=== PATIENT | female | born 1980 | race Caucasian/White ===

== ENCOUNTER 2024-07-09 10:25 | Inpatient (IN) | payer OTHER ==
[~2024-07-09] VITALS: Ht 157.5 cm; Wt 49.0 kg
[2024-07-09] MEDS ORDERED: MORPHINE SULFATE INJ 2 MG/ML DISP.SYRIN ONE (10:58)
[2024-07-09] MEDS: MORPHINE SULFATE INJ 2 MG/ML DISP.SYRIN IV ONE (11:00)
[2024-07-09 11:19] LABS: BASOPHILS # (AUTO) 0.2 K/uL (0.0-0.2); BASOPHILS % (AUTO) 1.9 % (0.0-2.0); EOSINOPHILS # (AUTO) 1.5 K/uL (0.0-0.7); EOSINOPHILS % (AUTO) 13.5 % (0.0-6.0); HEMATOCRIT 29 % (33-45); HEMOGLOBIN 9.7 g/dL (11.5-14.8); LYMPHOCYTES # (AUTO) 1.6 K/uL (0.8-4.8); LYMPHOCYTES % (AUTO) 14.8 % (20.0-44.0); MEAN CORPUSCULAR HEMOGLOBIN 30 PG (26.0-33.0); MEAN CORPUSCULAR HGB CONC 33 g/dl (31.0-36.0); MEAN CORPUSCULAR VOLUME 92 fL (82-100); MONOCYTES # (AUTO) 0.5 K/uL (0.1-1.30); MONOCYTES % (AUTO) 4.9 % (2.0-12.0); NEUTROPHILS # (AUTO) 7.2 K/uL (1.8-8.9); NEUTROPHILS % (AUTO) 64.9 % (43.0-81.0); PLATELET COUNT (AUTO) 301 K/uL (150-450); RED CELL DISTRIBUTION WIDTH 18.1 % (11.5-15.0)
[2024-07-09 11:29] LABS: CALCIUM, SERUM 9.1 mg/dL (8.5-10.1); CARBON DIOXIDE 20 mmol/L (21-32); CHLORIDE 94 mmol/L (98-107); CREATININE 6.7 mg/dL (0.6-1.3); GLUCOSE 272 mg/dL (74-106); SODIUM SERUM 129 mmol/L (136-145)
[2024-07-09 11:39] LABS: POTASSIUM 6.7 mmol/L (3.5-5.1); UREA NITROGEN, BLOOD 94 mg/dL (7-18)
[2024-07-09 11:52] LABS: LACTIC ACID 0.9 mmol/L (0.4-2.0)
[2024-07-09] MEDS ORDERED: SODIUM ZIRCONIUM CYCLOSILICATE 10 GM POWD.PACK ONE (12:17)
[2024-07-09] MEDS: SODIUM ZIRCONIUM CYCLOSILICATE 10 GM POWD.PACK PO ONE (12:21)
[2024-07-09] MEDS ORDERED: hydrALAZINE HCL IV 20 MG VIAL ONE (12:22)
[2024-07-09] MEDS: hydrALAZINE HCL IV 20 MG VIAL IV PRN (12:25)
[2024-07-09] MEDS ORDERED: MAGNESIUM HYDROXIDE 30 ML UDC PO PRN ×2 (12:30→14:30)
[2024-07-09] MEDS ORDERED: Z GUARD REMEDY 4 OZ OINT TP PRN (12:30)
[2024-07-09] MEDS ORDERED: MAG HYDROX/AL HYDROX/SIMETH 30 ML UDC PO PRN (12:30)
[2024-07-09] MEDS ORDERED: ASPI-1169 PO (13:58)
[2024-07-09] MEDS ORDERED: NITR0.4T48 SL (13:58)
[2024-07-09] MEDS ORDERED: ACET-73 PO (13:58)
[2024-07-09] MEDS ORDERED: BISA10SU11 RC (13:58)
[2024-07-09] MEDS ORDERED: NA P133E RC (13:58)
[2024-07-09] MEDS ORDERED: MAGN400O6 PO (13:58)
[2024-07-09] MEDS ORDERED: CARV12.52 PO (13:58)
[2024-07-09] MEDS ORDERED: HYDR-4076 PO (13:58)
[2024-07-09] MEDS ORDERED: ATOR80TA PO (13:58)
[2024-07-09] MEDS ORDERED: BISACODYL SUPP (10 MG) 10 MG/SUPP.RECT SUPP.RECT RC PRN (14:30)
[2024-07-09] MEDS ORDERED: DEXTROSE 50%-WATER 50 ML DISP.SYRIN IV PRN (14:30)
[2024-07-09] MEDS: NITROGLYCERIN PACKET 1 GM PACKET TOP SCH (14:44)
[2024-07-09] MEDS: ONDANSETRON HCL/PF 4 MG/2 ML VIAL IVP PRN (15:15)
[2024-07-09] MEDS: MORPHINE SULFATE INJ 2 MG/ML DISP.SYRIN IV PRN (15:54)
[2024-07-09 16:19] LABS: THYROID STIMULATING HORMONE 1.53 uIU/mL (0.358-3.74)
[2024-07-09 16:30] VITALS: BP 154/77; O2SAT 96
[2024-07-09] MEDS: CARVEDILOL 12.5 MG TABLET PO SCH (17:00)
[2024-07-09] MEDS: hydrALAZINE HCL 25 MG TABLET PO SCH (17:00)
[2024-07-09] MEDS: BLOOD SUGAR DIAGNOSTIC 1 EACH STRIP IN SCH (17:30)
[2024-07-09] MEDS: ASPIRIN 81 MG TAB.CHEW PO SCH (19:35)
[2024-07-09 20:00] VITALS: BP 192/100; TEMP 97.7; O2SAT 98
[2024-07-09 20:30] VITALS: BP 180/100; TEMP 97.7; O2SAT 98
[2024-07-09] MEDS: ACETAMINOPHEN 325 MG TABLET PO PRN (20:31)
[2024-07-09 21:00] VITALS: BP 188/88; TEMP 97.7; O2SAT 98
[2024-07-09] MEDS: ATORVASTATIN 40 MG TABLET PO SCH (22:19)
[2024-07-09] MEDS: INSULIN REGULAR, HUMAN 100 UNIT/ML 3 ML VIAL SQ PRN (22:30)
[2024-07-10] VITALS: BP 169/89; TEMP 98.2; O2SAT 98
[2024-07-10 04:00] VITALS: BP 189/94; TEMP 98.2; O2SAT 98
[2024-07-10 06:43] VITALS: BP 192/100; TEMP 97.7; O2SAT 98
[2024-07-10 06:45] LABS: CALCIUM, SERUM 9.6 mg/dL (8.5-10.1); CREATININE 5.4 mg/dL (0.6-1.3); MAGNESIUM 2.4 mg/dL (1.8-2.4); PHOSPHORUS 6.5 mg/dL (2.5-4.9)
[2024-07-10 06:46] LABS: BASOPHILS # (AUTO) 0.2 K/uL (0.0-0.2); BASOPHILS % (AUTO) 2.3 % (0.0-2.0); EOSINOPHILS # (AUTO) 1.4 K/uL (0.0-0.7); EOSINOPHILS % (AUTO) 15.7 % (0.0-6.0); HEMATOCRIT 30 % (33-45); HEMOGLOBIN 9.8 g/dL (11.5-14.8); LYMPHOCYTES # (AUTO) 1.6 K/uL (0.8-4.8); LYMPHOCYTES % (AUTO) 18.2 % (20.0-44.0); MEAN CORPUSCULAR HEMOGLOBIN 30 PG (26.0-33.0); MEAN CORPUSCULAR HGB CONC 32 g/dl (31.0-36.0); MEAN CORPUSCULAR VOLUME 91 fL (82-100); MONOCYTES # (AUTO) 0.6 K/uL (0.1-1.30); NEUTROPHILS % (AUTO) 56.8 % (43.0-81.0); PLATELET COUNT (AUTO) 311 K/uL (150-450); RED BLOOD CELL COUNT(AUTO) 3.32 MIL/uL (4.0-5.2); RED CELL DISTRIBUTION WIDTH 18.1 % (11.5-15.0); WHITE BLOOD COUNT (AUTO) 8.9 K/uL (4.3-11.0)
[2024-07-10 09:20] VITALS: BP 150/95; TEMP 98.5; O2SAT 98
[2024-07-10] MEDS: ASPIRIN 81 MG TAB.CHEW PO SCH (09:40)
[2024-07-10] MEDS: CARVEDILOL 12.5 MG TABLET PO SCH (16:13)
[2024-07-10 16:29] VITALS: BP 133/91; TEMP 98.1; O2SAT 97
[2024-07-10 20:00] VITALS: BP 151/96; TEMP 98.1; O2SAT 99
[2024-07-11] VITALS: BP 201/87; TEMP 98.4; O2SAT 99
[2024-07-11 04:55] VITALS: BP 189/87; TEMP 99; O2SAT 98
[2024-07-11 06:44] LABS: CALCIUM, SERUM 9.8 mg/dL (8.5-10.1); CREATININE 4.7 mg/dL (0.6-1.3); MAGNESIUM 2.4 mg/dL (1.8-2.4); POTASSIUM 4.2 mmol/L (3.5-5.1)
[2024-07-11 06:47] LABS: BASOPHILS # (AUTO) 0.2 K/uL (0.0-0.2); BASOPHILS % (AUTO) 2.2 % (0.0-2.0); EOSINOPHILS # (AUTO) 0.7 K/uL (0.0-0.7); HEMATOCRIT 30 % (33-45); HEMOGLOBIN 9.9 g/dL (11.5-14.8); LYMPHOCYTES # (AUTO) 1.3 K/uL (0.8-4.8); LYMPHOCYTES % (AUTO) 18.3 % (20.0-44.0); MEAN CORPUSCULAR HEMOGLOBIN 30 PG (26.0-33.0); MEAN CORPUSCULAR HGB CONC 33 g/dl (31.0-36.0); MEAN CORPUSCULAR VOLUME 91 fL (82-100); MONOCYTES # (AUTO) 0.6 K/uL (0.1-1.30); MONOCYTES % (AUTO) 7.9 % (2.0-12.0); NEUTROPHILS # (AUTO) 4.5 K/uL (1.8-8.9); NEUTROPHILS % (AUTO) 62.6 % (43.0-81.0); PLATELET COUNT (AUTO) 314 K/uL (150-450); RED CELL DISTRIBUTION WIDTH 18.5 % (11.5-15.0); WHITE BLOOD COUNT (AUTO) 7.2 K/uL (4.3-11.0)
[2024-07-11 08:00] VITALS: BP 165/90; TEMP 98.1; O2SAT 98
[2024-07-11] MEDS: AMLODIPINE BESYLATE 10 MG TABLET PO SCH (09:01)
[2024-07-11 09:11] LABS: HEPATITIS B CORE AB, IgM Negative (Negative); HEPATITIS B SURFACE AB Reactive (.)
[2024-07-11 12:00] VITALS: BP 139/83; TEMP 98.6; O2SAT 92
[2024-07-11 16:00] VITALS: BP 120/72; TEMP 98.2; O2SAT 98
[2024-07-11 20:00] VITALS: BP 165/88; TEMP 97.7; O2SAT 98
[2024-07-12 06:32] LABS: BASOPHILS # (AUTO) 0.2 K/uL (0.0-0.2); BASOPHILS % (AUTO) 2.8 % (0.0-2.0); EOSINOPHILS # (AUTO) 0.6 K/uL (0.0-0.7); EOSINOPHILS % (AUTO) 9.9 % (0.0-6.0); HEMATOCRIT 31 % (33-45); HEMOGLOBIN 9.8 g/dL (11.5-14.8); LYMPHOCYTES # (AUTO) 1.8 K/uL (0.8-4.8); LYMPHOCYTES % (AUTO) 29.5 % (20.0-44.0); MEAN CORPUSCULAR HEMOGLOBIN 30 PG (26.0-33.0); MEAN CORPUSCULAR HGB CONC 32 g/dl (31.0-36.0); MEAN CORPUSCULAR VOLUME 92 fL (82-100); MONOCYTES # (AUTO) 0.6 K/uL (0.1-1.30); MONOCYTES % (AUTO) 9.6 % (2.0-12.0); NEUTROPHILS # (AUTO) 2.9 K/uL (1.8-8.9); NEUTROPHILS % (AUTO) 48.2 % (43.0-81.0); PLATELET COUNT (AUTO) 311 K/uL (150-450); RED BLOOD CELL COUNT(AUTO) 3.34 MIL/uL (4.0-5.2); RED CELL DISTRIBUTION WIDTH 18.9 % (11.5-15.0); WHITE BLOOD COUNT (AUTO) 6.1 K/uL (4.3-11.0)
[2024-07-12 06:45] LABS: CALCIUM, SERUM 9.2 mg/dL (8.5-10.1); CREATININE 6.2 mg/dL (0.6-1.3); MAGNESIUM 2.3 mg/dL (1.8-2.4); PHOSPHORUS 7.4 mg/dL (2.5-4.9); POTASSIUM 4.7 mmol/L (3.5-5.1)
[2024-07-12 08:00] VITALS: BP 175/89; TEMP 98.4; O2SAT 99
[2024-07-12 16:00] VITALS: BP 155/85; TEMP 97.5; O2SAT 98
[2024-07-12] MEDS: HYDROCODONE/APAP 5/325MG TABLET PO PRN (17:08)
[2024-07-12 20:00] VITALS: BP 168/92; TEMP 98.2; O2SAT 95
[2024-07-13 06:50] LABS: CALCIUM, SERUM 9.3 mg/dL (8.5-10.1); CREATININE 4.8 mg/dL (0.6-1.3); MAGNESIUM 2.3 mg/dL (1.8-2.4); PHOSPHORUS 6.6 mg/dL (2.5-4.9); POTASSIUM 4.4 mmol/L (3.5-5.1)
[2024-07-13 06:51] LABS: BASOPHILS # (AUTO) 0.1 K/uL (0.0-0.2); BASOPHILS % (AUTO) 2.9 % (0.0-2.0); EOSINOPHILS # (AUTO) 0.4 K/uL (0.0-0.7); EOSINOPHILS % (AUTO) 8.7 % (0.0-6.0); HEMATOCRIT 32 % (33-45); HEMOGLOBIN 10.2 g/dL (11.5-14.8); LYMPHOCYTES # (AUTO) 1.6 K/uL (0.8-4.8); LYMPHOCYTES % (AUTO) 32.7 % (20.0-44.0); MEAN CORPUSCULAR HEMOGLOBIN 29 PG (26.0-33.0); MEAN CORPUSCULAR HGB CONC 32 g/dl (31.0-36.0); MEAN CORPUSCULAR VOLUME 91 fL (82-100); MONOCYTES # (AUTO) 0.6 K/uL (0.1-1.30); MONOCYTES % (AUTO) 11.6 % (2.0-12.0); NEUTROPHILS # (AUTO) 2.2 K/uL (1.8-8.9); NEUTROPHILS % (AUTO) 44.1 % (43.0-81.0); PLATELET COUNT (AUTO) 342 K/uL (150-450); RED BLOOD CELL COUNT(AUTO) 3.51 MIL/uL (4.0-5.2)
[2024-07-13 08:22] VITALS: BP 183/80; TEMP 98.2; O2SAT 96
[2024-07-13] MEDS: VALSARTAN 80 MG TABLET PO SCH (08:23)
[2024-07-13 16:00] VITALS: BP 137/72; TEMP 97.2; O2SAT 97
[2024-07-14 07:11] LABS: BASOPHILS # (AUTO) 0.1 K/uL (0.0-0.2); BASOPHILS % (AUTO) 2.5 % (0.0-2.0); EOSINOPHILS # (AUTO) 0.3 K/uL (0.0-0.7); EOSINOPHILS % (AUTO) 8.3 % (0.0-6.0); HEMATOCRIT 30 % (33-45); HEMOGLOBIN 9.8 g/dL (11.5-14.8); LYMPHOCYTES # (AUTO) 1.3 K/uL (0.8-4.8); MEAN CORPUSCULAR HEMOGLOBIN 30 PG (26.0-33.0); MEAN CORPUSCULAR HGB CONC 33 g/dl (31.0-36.0); MEAN CORPUSCULAR VOLUME 91 fL (82-100); MONOCYTES # (AUTO) 0.4 K/uL (0.1-1.30); MONOCYTES % (AUTO) 10.5 % (2.0-12.0); NEUTROPHILS % (AUTO) 47.7 % (43.0-81.0); PLATELET COUNT (AUTO) 328 K/uL (150-450); RED BLOOD CELL COUNT(AUTO) 3.31 MIL/uL (4.0-5.2); RED CELL DISTRIBUTION WIDTH 17.6 % (11.5-15.0); WHITE BLOOD COUNT (AUTO) 4.2 K/uL (4.3-11.0)
[2024-07-14 07:16] LABS: CREATININE 3.6 mg/dL (0.6-1.3); POTASSIUM 3.9 mmol/L (3.5-5.1)
[2024-07-14] MEDS ORDERED: IV NS 0.9% 250 ML IV ONE (16:21)
[2024-07-14] MEDS ORDERED: IOHEXOL-350 100 ML VIAL IV ONE (16:21)
[2024-07-14] MEDS ORDERED: CT SWABBABLE VALVE TRANS SET 1 EA INFUS.SET MC ONE (16:21)
[2024-07-14 20:00] VITALS: BP 123/71; TEMP 98.1; O2SAT 98
[2024-07-15 04:30] VITALS: BP 152/63
[2024-07-15 04:58] VITALS: BP 133/80
[2024-07-15 06:32] LABS: BASOPHILS # (AUTO) 0.1 K/uL (0.0-0.2); BASOPHILS % (AUTO) 2.3 % (0.0-2.0); EOSINOPHILS # (AUTO) 0.4 K/uL (0.0-0.7); EOSINOPHILS % (AUTO) 7.3 % (0.0-6.0); HEMATOCRIT 30 % (33-45); HEMOGLOBIN 9.9 g/dL (11.5-14.8); LYMPHOCYTES # (AUTO) 1.7 K/uL (0.8-4.8); LYMPHOCYTES % (AUTO) 31.8 % (20.0-44.0); MEAN CORPUSCULAR HEMOGLOBIN 30 PG (26.0-33.0); MEAN CORPUSCULAR HGB CONC 33 g/dl (31.0-36.0); MEAN CORPUSCULAR VOLUME 90 fL (82-100); MONOCYTES # (AUTO) 0.6 K/uL (0.1-1.30); MONOCYTES % (AUTO) 10.7 % (2.0-12.0); NEUTROPHILS # (AUTO) 2.5 K/uL (1.8-8.9); NEUTROPHILS % (AUTO) 47.9 % (43.0-81.0); PLATELET COUNT (AUTO) 348 K/uL (150-450); RED BLOOD CELL COUNT(AUTO) 3.36 MIL/uL (4.0-5.2); RED CELL DISTRIBUTION WIDTH 17.9 % (11.5-15.0); WHITE BLOOD COUNT (AUTO) 5.2 K/uL (4.3-11.0)
[2024-07-15 06:57] LABS: CREATININE 4.9 mg/dL (0.6-1.3); MAGNESIUM 2.4 mg/dL (1.8-2.4); PHOSPHORUS 6.2 mg/dL (2.5-4.9); POTASSIUM 4.3 mmol/L (3.5-5.1)
[2024-07-15 07:00] VITALS: BP 155/89; TEMP 98.1; O2SAT 99
[2024-07-15 16:00] VITALS: BP 103/63; TEMP 97.7; O2SAT 99
[2024-07-15 20:00] VITALS: BP 123/80; TEMP 98.2; O2SAT 97
[2024-07-16 02:35] VITALS: BP 144/91
[2024-07-16] MEDS ORDERED: VALS80TA31 PO (13:48)
[2024-07-16] MEDS ORDERED: CARV12.52 PO (13:48)
[2024-07-16] MEDS ORDERED: AMLO-213 PO (13:48)
[2024-07-16 20:00] VITALS: BP 128/62; TEMP 98.2; O2SAT 100
[2024-07-17 08:00] VITALS: BP 146/115; TEMP 98.6; O2SAT 98
[2024-07-17 15:30] VITALS: BP 145/86; TEMP 98.1; O2SAT 99
[2024-07-17 20:00] VITALS: BP 126/74; TEMP 98.1; O2SAT 100
[2024-07-18 08:00] VITALS: BP 165/87; TEMP 98.4; O2SAT 100
[2024-07-18 08:28] VITALS: BP 144/68
== END 2024-07-18 13:10 | DRG 199 ==
LOC: ER 10:28 → TELE 13:50 → MED 07-11 12:46
PROC: 5A1D70Z Performance of Urinary Filtration, Intermittent, Less than 6 Hours Per Day (ICD-10-PCS; principal; 2024-07-09)
DX: I16.0 Hypertensive urgency (principal); K55.1 Chronic vascular disorders of intestine; N18.6 End stage renal disease; E87.1 Hypo-osmolality and hyponatremia; E11.22 Type 2 diabetes mellitus with diabetic chronic kidney disease; D63.1 Anemia in chronic kidney disease; I50.32 Chronic diastolic (congestive) heart failure; I25.10 Atherosclerotic heart disease of native coronary artery without angina pectoris; I13.2 Hypertensive heart and chronic kidney disease with heart failure and with stage 5 chronic kidney disease, or end stage renal disease; Z99.2 Dependence on renal dialysis; E87.5 Hyperkalemia; Z90.49 Acquired absence of other specified parts of digestive tract; E78.5 Hyperlipidemia, unspecified; E11.65 Type 2 diabetes mellitus with hyperglycemia; R60.1 Generalized edema
CPT/HCPCS: 36415; 71045-TC; 80048-TC; 80061-TC; 82728-TC; 82962-TC; 83540-TC; 83605-TC; 83735-TC; 84100-TC; 84439-TC; 84443-TC; 84484-TC; 85025-TC; 86705; 86706; 87040-TC; 87340; 90935-TC; 93307-TC; G0378; J0360; J1815; J2270; J2405; J7030; J7050; Q9967

== ENCOUNTER 2024-07-30 09:32 | Inpatient (IN) | payer OTHER ==
[~2024-07-30] VITALS: Ht 157.5 cm; Wt 49.0 kg
[~2024-07-30 09:32] MED LIST: ACET-73 PO; AMLO-213 PO; ASPI-1169 PO; ATOR80TA PO; BISA10SU11 RC; CARV12.52 PO; HYDR-4076 PO; MAGN400O6 PO; NA P133E RC; NITR0.4T48 SL; VALS80TA31 PO
[2024-07-30] MEDS: ONDANSETRON HCL/PF 4 MG/2 ML VIAL IVP ONE (09:55)
[2024-07-30] MEDS: MORPHINE SULFATE INJ 2 MG/ML DISP.SYRIN IV ONE (09:56)
[2024-07-30] MEDS ORDERED: MORPHINE SULFATE INJ 4 MG/ML DISP.SYRIN ONE (09:56)
[2024-07-30] MEDS ORDERED: ONDANSETRON HCL/PF 4 MG/2 ML VIAL ONE (09:56)
[2024-07-30 10:14] LABS: BASOPHILS # (AUTO) 0.1 K/uL (0.0-0.2); EOSINOPHILS # (AUTO) 0.3 K/uL (0.0-0.7); EOSINOPHILS % (AUTO) 6.3 % (0.0-6.0); HEMATOCRIT 28 % (33-45); HEMOGLOBIN 9.4 g/dL (11.5-14.8); LYMPHOCYTES # (AUTO) 2.1 K/uL (0.8-4.8); MEAN CORPUSCULAR HEMOGLOBIN 30 PG (26.0-33.0); MEAN CORPUSCULAR HGB CONC 33 g/dl (31.0-36.0); MEAN CORPUSCULAR VOLUME 89 fL (82-100); MONOCYTES # (AUTO) 0.3 K/uL (0.1-1.30); MONOCYTES % (AUTO) 5.9 % (2.0-12.0); NEUTROPHILS # (AUTO) 2.5 K/uL (1.8-8.9); NEUTROPHILS % (AUTO) 46.8 % (43.0-81.0); PLATELET COUNT (AUTO) 210 K/uL (150-450); RED BLOOD CELL COUNT(AUTO) 3.18 MIL/uL (4.0-5.2); RED CELL DISTRIBUTION WIDTH 16.6 % (11.5-15.0); WHITE BLOOD COUNT (AUTO) 5.3 K/uL (4.3-11.0)
[2024-07-30 10:39] LABS: ALANINE AMINOTRANSFERASE 36 U/L (12-78); ALBUMIN 3.3 g/dL (3.4-5.0); ALKALINE PHOSPHATASE 306 U/L (46-116); ASPARTATE AMINOTRANSFERASE 28 U/L (15-37); BILIRUBIN,DIRECT 0.1 mg/dL (0.0-0.2); BILIRUBIN,TOTAL 0.4 mg/dL (0.2-1.0); CALCIUM, SERUM 9.3 mg/dL (8.5-10.1); CARBON DIOXIDE 31 mmol/L (21-32); CHLORIDE 92 mmol/L (98-107); CREATININE 5.7 mg/dL (0.6-1.3); GLUCOSE 324 mg/dL (74-106); NT-PRO BNP 21479 pg/mL (0-125); POTASSIUM 5.4 mmol/L (3.5-5.1); SODIUM SERUM 131 mmol/L (136-145); TOTAL PROTEIN, SERUM 9.3 g/dL (6.4-8.2); UREA NITROGEN, BLOOD 32 mg/dL (7-18)
[2024-07-30] MEDS ORDERED: HYDROMORPHONE 1 MG/1 ML DISP.SYRIN ONE (11:55)
[2024-07-30] MEDS: HYDROMORPHONE 1 MG/1 ML DISP.SYRIN IV ONE (12:02)
[2024-07-30] MEDS ORDERED: LOPE2TAB25 PO (12:12)
[2024-07-30] MEDS ORDERED: ONDA-97 PO (12:12)
[2024-07-30] MEDS ORDERED: VIT1TABL46 PO (12:12)
[2024-07-30] MEDS ORDERED: ACET325T53 PO (12:12)
[2024-07-30] MEDS ORDERED: LORA-258 PO (12:12)
[2024-07-30] MEDS: SODIUM BICARBONATE SYR 50 MEQ/50 ML DISP.SYRIN IV ONE (13:20)
[2024-07-30] MEDS ORDERED: SODIUM BICARBONATE SYR 50 MEQ/50 ML DISP.SYRIN ONE (13:22)
[2024-07-30] MEDS ORDERED: SODIUM ZIRCONIUM CYCLOSILICATE 10 GM POWD.PACK ONE (13:22)
[2024-07-30] MEDS: SODIUM ZIRCONIUM CYCLOSILICATE 10 GM POWD.PACK PO ONE (13:27)
[2024-07-30] MEDS: Calcium Gluconate 1GM/10ML 4.65 MEQ in IV NS 0.9% 100 ML IV ONE (13:30)
[2024-07-30] MEDS ORDERED: ACETAMINOPHEN 325 MG TABLET PO PRN ×2 (14:00)
[2024-07-30] MEDS ORDERED: ZOLPIDEM TARTRATE 5 MG TABLET PO PRN (14:00)
[2024-07-30] MEDS ORDERED: Z GUARD REMEDY 4 OZ OINT TP PRN (14:00)
[2024-07-30] MEDS: ONDANSETRON HCL/PF 4 MG/2 ML VIAL IVP PRN (15:08)
[2024-07-30] MEDS: HEPARIN SODIUM, PORCINE 5000 UNITS/1 ML VIAL SQ SCH (15:09)
[2024-07-30 16:00] VITALS: BP 149/88; TEMP 97.9; O2SAT 100
[2024-07-30 20:00] VITALS: BP_SYST 131; BP_SYST 151; BP_DIAS 70; TEMP 98.9; O2SAT 100
[2024-07-31] VITALS: BP 136/70; TEMP 99.2; O2SAT 97
[2024-07-31 04:00] VITALS: BP 148/74; TEMP 99.1; O2SAT 100; O2SAT 97
[2024-07-31 06:29] LABS: BASOPHILS # (AUTO) 0.1 K/uL (0.0-0.2); BASOPHILS % (AUTO) 1.1 % (0.0-2.0); EOSINOPHILS # (AUTO) 0.4 K/uL (0.0-0.7); EOSINOPHILS % (AUTO) 6.5 % (0.0-6.0); HEMATOCRIT 26 % (33-45); HEMOGLOBIN 8.9 g/dL (11.5-14.8); LYMPHOCYTES # (AUTO) 1.6 K/uL (0.8-4.8); LYMPHOCYTES % (AUTO) 28.8 % (20.0-44.0); MEAN CORPUSCULAR HEMOGLOBIN 31 PG (26.0-33.0); MEAN CORPUSCULAR HGB CONC 34 g/dl (31.0-36.0); MEAN CORPUSCULAR VOLUME 89 fL (82-100); MONOCYTES # (AUTO) 0.4 K/uL (0.1-1.30); MONOCYTES % (AUTO) 6.4 % (2.0-12.0); NEUTROPHILS # (AUTO) 3.2 K/uL (1.8-8.9); NEUTROPHILS % (AUTO) 57.2 % (43.0-81.0); PLATELET COUNT (AUTO) 198 K/uL (150-450); RED CELL DISTRIBUTION WIDTH 16.5 % (11.5-15.0); WHITE BLOOD COUNT (AUTO) 5.6 K/uL (4.3-11.0)
[2024-07-31 06:53] LABS: CREATININE 4.1 mg/dL (0.6-1.3); MAGNESIUM 2.2 mg/dL (1.8-2.4); PHOSPHORUS 3.5 mg/dL (2.5-4.9)
[2024-07-31 07:16] LABS: POTASSIUM 4.7 mmol/L (3.5-5.1)
[2024-07-31 07:30] VITALS: BP 162/82; TEMP 98.4; O2SAT 99
[2024-07-31] MEDS: HYDROCODONE/APAP 5/325MG TABLET PO PRN (11:35)
[2024-07-31] MEDS: METOPROLOL TARTRATE 50 MG TABLET PO ONE (13:34)
[2024-07-31 16:00] VITALS: BP 169/78; TEMP 98.2; O2SAT 98
[2024-07-31] MEDS ORDERED: IOHEXOL-350 100 ML VIAL IV ONE (16:40)
[2024-07-31] MEDS ORDERED: IV NS 0.9% 250 ML IV ONE (16:40)
[2024-07-31] MEDS: METOPROLOL TARTRATE INJ 5 MG/5 ML AMPUL IVP PRN (17:00)
[2024-07-31] MEDS ORDERED: NITROGLYCERIN 0.4 MG/TAB BOTTLE ONE (17:13)
[2024-07-31] MEDS ORDERED: METOPROLOL TARTRATE INJ 5 MG/5 ML AMPUL ONE ×2 (17:13→17:21)
[2024-07-31] MEDS: NITROGLYCERIN 0.4 MG/TAB BOTTLE SL ONE (17:23)
[2024-07-31 20:00] VITALS: BP 99/68; TEMP 98.3; O2SAT 97
[2024-08-01] VITALS: BP 170/88; TEMP 98.1; O2SAT 99
[2024-08-01 01:00] VITALS: BP 180/90; TEMP 98.1; O2SAT 99
[2024-08-01] MEDS: CLONIDINE HCL 0.1 MG TABLET PO PRN (01:40)
[2024-08-01 04:00] VITALS: BP 163/75; TEMP 98.1; O2SAT 99
[2024-08-01 07:00] VITALS: BP 179/89; TEMP 98.2; O2SAT 99
[2024-08-01 07:06] LABS: BASOPHILS # (AUTO) 0.1 K/uL (0.0-0.2); BASOPHILS % (AUTO) 1.4 % (0.0-2.0); EOSINOPHILS # (AUTO) 0.3 K/uL (0.0-0.7); EOSINOPHILS % (AUTO) 6.6 % (0.0-6.0); HEMATOCRIT 25 % (33-45); HEMOGLOBIN 8.3 g/dL (11.5-14.8); LYMPHOCYTES # (AUTO) 1.4 K/uL (0.8-4.8); LYMPHOCYTES % (AUTO) 26.9 % (20.0-44.0); MEAN CORPUSCULAR HEMOGLOBIN 30 PG (26.0-33.0); MEAN CORPUSCULAR HGB CONC 33 g/dl (31.0-36.0); MEAN CORPUSCULAR VOLUME 91 fL (82-100); MONOCYTES # (AUTO) 0.4 K/uL (0.1-1.30); MONOCYTES % (AUTO) 7.1 % (2.0-12.0); PLATELET COUNT (AUTO) 172 K/uL (150-450); RED BLOOD CELL COUNT(AUTO) 2.79 MIL/uL (4.0-5.2); WHITE BLOOD COUNT (AUTO) 5.2 K/uL (4.3-11.0)
[2024-08-01 07:26] LABS: CALCIUM, SERUM 8.4 mg/dL (8.5-10.1); CREATININE 4.1 mg/dL (0.6-1.3); MAGNESIUM 2.2 mg/dL (1.8-2.4); PHOSPHORUS 3.6 mg/dL (2.5-4.9); POTASSIUM 5.4 mmol/L (3.5-5.1)
[2024-08-01] MEDS ORDERED: LORAZEPAM 0.5 MG TABLET PO PRN (10:00)
[2024-08-01] MEDS: VIT B CMPLX 3/FA/VIT C/BIOTIN 1 TAB TABLET PO SCH (10:54)
[2024-08-01] MEDS: hydrALAZINE HCL 25 MG TABLET PO SCH (10:54)
[2024-08-01] MEDS: VALSARTAN 80 MG TABLET PO SCH (10:54)
[2024-08-01] MEDS: ASPIRIN 81 MG TAB.CHEW PO SCH (10:54)
[2024-08-01] MEDS: CARVEDILOL 12.5 MG TABLET PO SCH (10:54)
[2024-08-01] MEDS: AMLODIPINE BESYLATE 10 MG TABLET PO SCH (10:54)
[2024-08-01 13:00] VITALS: BP 120/74
[2024-08-01] MEDS ORDERED: ATORVASTATIN 40 MG TABLET PO SCH (22:00)
== END 2024-08-01 17:00 | DRG 199 ==
LOC: ER 09:36 → TELE 12:01
PROVIDERS: ADMIT Nurse Practitioner Acute Care; ATTEND Nurse Practitioner Acute Care
PROC: 5A1D70Z Performance of Urinary Filtration, Intermittent, Less than 6 Hours Per Day (ICD-10-PCS; principal; 2024-07-30)
DX: I16.0 Hypertensive urgency (principal); E11.22 Type 2 diabetes mellitus with diabetic chronic kidney disease; N18.6 End stage renal disease; D63.8 Anemia in other chronic diseases classified elsewhere; I12.0 Hypertensive chronic kidney disease with stage 5 chronic kidney disease or end stage renal disease; E87.1 Hypo-osmolality and hyponatremia; Z99.2 Dependence on renal dialysis; E87.5 Hyperkalemia; E78.5 Hyperlipidemia, unspecified; Z79.82 Long term (current) use of aspirin; Z79.899 Other long term (current) drug therapy; N25.0 Renal osteodystrophy
CPT/HCPCS: 36415; 71045-TC; 75574; 80048-TC; 80061-TC; 80076-TC; 83690-TC; 83735-TC; 83880; 84100-TC; 84484-TC; 85025-TC; 90935-TC; G0378; J0610; J1171; J1644; J2270; J2405; J3490; J7030; J7050; Q9967

== ENCOUNTER 2024-08-28 11:59 | Inpatient (IN) | payer OTHER ==
[~2024-08-28] VITALS: Ht 157.5 cm; Wt 66.2 kg
[~2024-08-28 11:59] MED LIST changes: +ACET325T53 PO; +LOPE2TAB25 PO; +LORA-258 PO; +ONDA-97 PO; +VIT1TABL46 PO
[2024-08-28] MEDS ORDERED: ONDANSETRON HCL/PF 4 MG/2 ML VIAL ONE (12:16)
[2024-08-28] MEDS ORDERED: MORPHINE SULFATE INJ 4 MG/ML DISP.SYRIN ONE (12:17)
[2024-08-28] MEDS: MORPHINE SULFATE INJ 2 MG/ML DISP.SYRIN IV ONE (12:23)
[2024-08-28] MEDS: ONDANSETRON HCL/PF 4 MG/2 ML VIAL IVP ONE (12:24)
[2024-08-28 12:25] LABS: BASOPHILS # (AUTO) 0.1 K/uL (0.0-0.2); BASOPHILS % (AUTO) 1.5 % (0.0-2.0); EOSINOPHILS # (AUTO) 0.2 K/uL (0.0-0.7); EOSINOPHILS % (AUTO) 4.1 % (0.0-6.0); HEMATOCRIT 25 % (33-45); HEMOGLOBIN 8.4 g/dL (11.5-14.8); LYMPHOCYTES # (AUTO) 1.3 K/uL (0.8-4.8); LYMPHOCYTES % (AUTO) 22.3 % (20.0-44.0); MEAN CORPUSCULAR HEMOGLOBIN 31 PG (26.0-33.0); MEAN CORPUSCULAR HGB CONC 33 g/dl (31.0-36.0); MEAN CORPUSCULAR VOLUME 94 fL (82-100); MONOCYTES # (AUTO) 0.5 K/uL (0.1-1.30); MONOCYTES % (AUTO) 8.2 % (2.0-12.0); NEUTROPHILS # (AUTO) 3.6 K/uL (1.8-8.9); NEUTROPHILS % (AUTO) 63.9 % (43.0-81.0); PLATELET COUNT (AUTO) 243 K/uL (150-450); RED BLOOD CELL COUNT(AUTO) 2.69 MIL/uL (4.0-5.2); RED CELL DISTRIBUTION WIDTH 18.5 % (11.5-15.0); WHITE BLOOD COUNT (AUTO) 5.6 K/uL (4.3-11.0)
[2024-08-28 12:36] LABS: CALCIUM, SERUM 9.1 mg/dL (8.5-10.1); CARBON DIOXIDE 28 mmol/L (21-32); CHLORIDE 96 mmol/L (98-107); CREATININE 6.6 mg/dL (0.6-1.3); GLUCOSE 80 mg/dL (74-106); SODIUM SERUM 132 mmol/L (136-145)
[2024-08-28 12:48] LABS: POTASSIUM 6.2 mmol/L (3.5-5.1); UREA NITROGEN, BLOOD 82 mg/dL (7-18)
[2024-08-28] MEDS ORDERED: SODIUM ZIRCONIUM CYCLOSILICATE 10 GM POWD.PACK ONE (13:00)
[2024-08-28] MEDS ORDERED: SODIUM BICARBONATE SYR 50 MEQ/50 ML DISP.SYRIN ONE (13:00)
[2024-08-28] MEDS: SODIUM BICARBONATE SYR 50 MEQ/50 ML DISP.SYRIN IV ONE (13:13)
[2024-08-28] MEDS: SODIUM ZIRCONIUM CYCLOSILICATE 10 GM POWD.PACK PO ONE (13:14)
[2024-08-28] MEDS: Calcium Gluconate 1GM/10ML 4.65 MEQ in IV NS 0.9% 100 ML IV ONE (13:35)
[2024-08-28] MEDS ORDERED: INSU100I30 SQ (14:12)
[2024-08-28] MEDS ORDERED: HYDR-4303 PO (14:12)
[2024-08-28] MEDS ORDERED: INSU100I40 SQ (14:12)
[2024-08-28] MEDS ORDERED: Z GUARD REMEDY 4 OZ OINT TP PRN (18:00)
[2024-08-28] MEDS ORDERED: DEXTROSE 50%-WATER 50 ML DISP.SYRIN IV PRN (18:00)
[2024-08-28] MEDS ORDERED: BISACODYL SUPP (10 MG) 10 MG/SUPP.RECT SUPP.RECT RC PRN (18:00)
[2024-08-28] MEDS ORDERED: NITROGLYCERIN 0.4 MG/TAB BOTTLE SL PRN (18:00)
[2024-08-28] MEDS ORDERED: CLONIDINE HCL 0.1 MG TABLET PO PRN (18:00)
[2024-08-28] MEDS ORDERED: MAGNESIUM HYDROXIDE 30 ML UDC PO PRN (18:00)
[2024-08-28] MEDS ORDERED: MAG HYDROX/AL HYDROX/SIMETH 30 ML UDC PO PRN (18:00)
[2024-08-28] MEDS ORDERED: NA PHOS,M-B/NA PHOS,DI-BA 1 EA ENEMA RC PRN (18:00)
[2024-08-28] MEDS ORDERED: ACETAMINOPHEN 325 MG TABLET PO PRN (18:00)
[2024-08-28 20:00] VITALS: BP 142/69; TEMP 97.3; O2SAT 93
[2024-08-28] MEDS: MORPHINE SULFATE INJ 2 MG/ML DISP.SYRIN IV PRN (20:58)
[2024-08-28] MEDS ORDERED: MORPHINE SULFATE INJ 2 MG/ML DISP.SYRIN IV PRN (21:00)
[2024-08-28] MEDS: BLOOD SUGAR DIAGNOSTIC 1 EACH STRIP VI SCH (21:19)
[2024-08-28] MEDS: *INSULIN REGULAR(HUMULIN R)HUM 100 UNIT/ML VIAL SQ PRN (21:20)
[2024-08-28] MEDS: INSULIN GLARGINE, 100 UNIT/ML CARTRIDGE SQ SCH (21:47)
[2024-08-29] VITALS (9 sets, daily range): BP systolic 101–163; BP diastolic 59–82; TEMP 97.5–98.6; O2SAT 84–98
[2024-08-29 01:28] LABS: ABG BASE EXCESS 0.1 mmol/L (-2.0-3.0); ABG OXYGEN SATURATION 92.4 % (94.0-98.0); ABG PH 7.365 (7.350-7.450); ABG PO2 68.9 mmHg (83.0-108.0); ABG TOTAL HEMOGLOBIN 9.6 G/dL (12.0-16.0); COHb 0.6 % (0.5-1.5); MetHb 0.3 % (0.0-1.5); O2Hb 91.6 % (94.0-97.0); SITE, ABG RIGHT BRACHIAL
[2024-08-29] MEDS: ONDANSETRON HCL/PF 4 MG/2 ML VIAL IVP PRN (05:27)
[2024-08-29] MEDS: INSULIN REGULAR, HUMAN 100 UNIT/ML 3 ML VIAL SQ PRN (06:30)
[2024-08-29 06:37] LABS: BASOPHILS # (AUTO) 0.1 K/uL (0.0-0.2); BASOPHILS % (AUTO) 1.7 % (0.0-2.0); EOSINOPHILS # (AUTO) 0.2 K/uL (0.0-0.7); EOSINOPHILS % (AUTO) 2.7 % (0.0-6.0); HEMATOCRIT 25 % (33-45); HEMOGLOBIN 8.5 g/dL (11.5-14.8); LYMPHOCYTES # (AUTO) 0.9 K/uL (0.8-4.8); LYMPHOCYTES % (AUTO) 16.1 % (20.0-44.0); MEAN CORPUSCULAR HEMOGLOBIN 31 PG (26.0-33.0); MEAN CORPUSCULAR HGB CONC 33 g/dl (31.0-36.0); MEAN CORPUSCULAR VOLUME 93 fL (82-100); MONOCYTES # (AUTO) 0.4 K/uL (0.1-1.30); MONOCYTES % (AUTO) 6.2 % (2.0-12.0); NEUTROPHILS # (AUTO) 4.2 K/uL (1.8-8.9); NEUTROPHILS % (AUTO) 73.3 % (43.0-81.0); PLATELET COUNT (AUTO) 247 K/uL (150-450); RED BLOOD CELL COUNT(AUTO) 2.73 MIL/uL (4.0-5.2); RED CELL DISTRIBUTION WIDTH 18.3 % (11.5-15.0); WHITE BLOOD COUNT (AUTO) 5.7 K/uL (4.3-11.0)
[2024-08-29 07:17] LABS: CALCIUM, SERUM 8.8 mg/dL (8.5-10.1); CREATININE 7.2 mg/dL (0.6-1.3); MAGNESIUM 2.9 mg/dL (1.8-2.4); PHOSPHORUS 6.9 mg/dL (2.5-4.9); POTASSIUM 6.1 mmol/L (3.5-5.1)
[2024-08-29] MEDS: ASPIRIN 81 MG TAB.CHEW PO SCH (08:53)
[2024-08-29] MEDS: LORAZEPAM 0.5 MG TABLET PO SCH (08:53)
[2024-08-29] MEDS: AMLODIPINE BESYLATE 10 MG TABLET PO SCH (09:21)
[2024-08-29] MEDS: VALSARTAN 80 MG TABLET PO SCH (09:22)
[2024-08-29] MEDS: hydrALAZINE HCL 25 MG TABLET PO SCH (09:22)
[2024-08-29] MEDS: CARVEDILOL 12.5 MG TABLET PO SCH (09:23)
[2024-08-29] MEDS: MORPHINE SULFATE INJ 2 MG/ML DISP.SYRIN IV PRN (21:58)
[2024-08-30] VITALS: BP 145/73; TEMP 97.9; O2SAT 98
[2024-08-30 04:00] VITALS: BP 141/71; TEMP 98.4; O2SAT 98
[2024-08-30 05:32] VITALS: BP 141/71; TEMP 98.4; O2SAT 98
[2024-08-30 07:35] LABS: BASOPHILS # (AUTO) 0.1 K/uL (0.0-0.2); BASOPHILS % (AUTO) 1.6 % (0.0-2.0); EOSINOPHILS # (AUTO) 0.2 K/uL (0.0-0.7); EOSINOPHILS % (AUTO) 3.9 % (0.0-6.0); HEMATOCRIT 25 % (33-45); HEMOGLOBIN 8.3 g/dL (11.5-14.8); LYMPHOCYTES # (AUTO) 0.7 K/uL (0.8-4.8); MEAN CORPUSCULAR HEMOGLOBIN 31 PG (26.0-33.0); MEAN CORPUSCULAR HGB CONC 33 g/dl (31.0-36.0); MEAN CORPUSCULAR VOLUME 93 fL (82-100); MONOCYTES # (AUTO) 0.3 K/uL (0.1-1.30); MONOCYTES % (AUTO) 6.8 % (2.0-12.0); NEUTROPHILS # (AUTO) 3.1 K/uL (1.8-8.9); NEUTROPHILS % (AUTO) 70.7 % (43.0-81.0); PLATELET COUNT (AUTO) 232 K/uL (150-450); RED CELL DISTRIBUTION WIDTH 18.3 % (11.5-15.0); WHITE BLOOD COUNT (AUTO) 4.3 K/uL (4.3-11.0)
[2024-08-30 07:46] LABS: CALCIUM, SERUM 8.4 mg/dL (8.5-10.1); CREATININE 4.8 mg/dL (0.6-1.3); POTASSIUM 5.7 mmol/L (3.5-5.1)
[2024-08-30 08:00] VITALS: BP 141/77; TEMP 98.6; O2SAT 100
[2024-08-30] MEDS ORDERED: SODIUM ZIRCONIUM CYCLOSILICATE 10 GM POWD.PACK PO SCH (09:30)
[2024-08-30 16:00] VITALS: BP 128/70; TEMP 98.1; O2SAT 90
[2024-08-30 17:00] VITALS: BP 141/71
== END 2024-08-30 19:20 | DRG 425 ==
LOC: ER 12:05 → TELE 17:06
PROVIDERS: ADMIT Internal Medicine; ATTEND Internal Medicine
PROC: 5A1D70Z Performance of Urinary Filtration, Intermittent, Less than 6 Hours Per Day (ICD-10-PCS; principal; 2024-08-29)
DX: E87.5 Hyperkalemia (principal); I13.2 Hypertensive heart and chronic kidney disease with heart failure and with stage 5 chronic kidney disease, or end stage renal disease; E11.649 Type 2 diabetes mellitus with hypoglycemia without coma; J90 Pleural effusion, not elsewhere classified; D64.9 Anemia, unspecified; E11.22 Type 2 diabetes mellitus with diabetic chronic kidney disease; E78.5 Hyperlipidemia, unspecified; G89.29 Other chronic pain; N18.6 End stage renal disease; Z99.2 Dependence on renal dialysis; M89.8X9 Other specified disorders of bone, unspecified site; J98.11 Atelectasis; R07.9 Chest pain, unspecified; I50.9 Heart failure, unspecified
CPT/HCPCS: 36415; 36600; 71045-TC; 80048-TC; 82803-TC; 82962-TC; 83735-TC; 84100-TC; 84484-TC; 85025-TC; 87081-TC; 90935-TC; 94760-TC; 94762-TC; 94799-TC; A4223; G0378; J0612; J1815; J2270; J2405; J3490; J7030

== ENCOUNTER 2025-05-16 19:43 | Inpatient (IN) | payer OTHER ==
[~2025-05-16] VITALS: Ht 157.5 cm; Wt 56.2 kg
[~2025-05-16 19:43] MED LIST changes: +HYDR-4303 PO; +INSU100I30 SQ; +INSU100I40 SQ
[2025-05-16] MEDS ORDERED: ONDANSETRON HCL/PF 4 MG/2 ML VIAL ONE (19:59)
[2025-05-16] MEDS ORDERED: MORPHINE SULFATE INJ 4 MG/ML DISP.SYRIN ONE (19:59)
[2025-05-16] MEDS: MORPHINE SULFATE INJ 2 MG/ML DISP.SYRIN IV ONE (20:07)
[2025-05-16 20:08] LABS: PLATELET COUNT (AUTO) 228 K/uL (150-450); RED BLOOD CELL COUNT(AUTO) 4.37 MIL/uL (4.0-5.2); RED CELL DISTRIBUTION WIDTH 18.7 % (11.5-15.0); WHITE BLOOD COUNT (AUTO) 5.6 K/uL (4.3-11.0)
[2025-05-16] MEDS: ONDANSETRON HCL/PF 4 MG/2 ML VIAL IVP ONE (20:08)
[2025-05-16 20:15] LABS: CALCIUM, SERUM 9.4 mg/dL (8.5-10.1); CREATININE 5.6 mg/dL (0.6-1.3); SODIUM SERUM 129 mmol/L (136-145); UREA NITROGEN, BLOOD 36 mg/dL (7-18)
[2025-05-16] MEDS ORDERED: LORAZEPAM INJ 2 MG/ML VIAL ONE (21:31)
[2025-05-16] MEDS: LORAZEPAM INJ 2 MG/ML VIAL IV ONE (21:44)
[2025-05-16] MEDS ORDERED: DEXTROSE 50%-WATER 50 ML DISP.SYRIN IV PRN (22:00)
[2025-05-16] MEDS ORDERED: MAG HYDROX/AL HYDROX/SIMETH 30 ML UDC PO PRN (22:00)
[2025-05-16 23:10] VITALS: BP 131/81; TEMP 97.9; O2SAT 95
[2025-05-16] MEDS: ASPIRIN 81 MG TAB.CHEW PO ONE (23:12)
[2025-05-16] MEDS: BLOOD SUGAR DIAGNOSTIC 1 EACH STRIP IN SCH (23:12)
[2025-05-17] VITALS: BP 107/71; TEMP 97.3; O2SAT 96
[2025-05-17] MEDS: INSULIN REGULAR, HUMAN 100 UNIT/ML 3 ML VIAL SQ PRN (01:03)
[2025-05-17] MEDS ORDERED: MORPHINE SULFATE INJ 2 MG/ML DISP.SYRIN IV ONE (02:30)
[2025-05-17 07:30] VITALS: BP 100/66; TEMP 97.3; O2SAT 97
[2025-05-17 07:30] LABS: PLATELET COUNT (AUTO) 207 K/uL (150-450); RED BLOOD CELL COUNT(AUTO) 4.30 MIL/uL (4.0-5.2); RED CELL DISTRIBUTION WIDTH 18.8 % (11.5-15.0); WHITE BLOOD COUNT (AUTO) 4.6 K/uL (4.3-11.0)
[2025-05-17 07:40] LABS: ASPARTATE AMINOTRANSFERASE 29.0 U/L (15-37); CALCIUM, SERUM 9.2 mg/dL (8.5-10.1); CREATININE 6.1 mg/dL (0.6-1.3); PHOSPHORUS 6.1 mg/dL (2.5-4.9); SODIUM SERUM 132.0 mmol/L (136-145); TOTAL PROTEIN, SERUM 7.9 g/dL (6.4-8.2); UREA NITROGEN, BLOOD 41.0 mg/dL (7-18)
[2025-05-17 08:13] LABS: LDL 32.0 mg/dL (0-99)
[2025-05-17] MEDS: ASPIRIN 81 MG TAB.CHEW PO SCH (08:54)
[2025-05-17] MEDS: PANTOPRAZOLE 40 MG TABLET.DR PO SCH (08:55)
[2025-05-17] MEDS ORDERED: CARV25TA PO (09:27)
[2025-05-17] MEDS ORDERED: POLY15DR31 EACHEYE (09:27)
[2025-05-17] MEDS ORDERED: SODI15OR6 PO (09:27)
[2025-05-17] MEDS ORDERED: MINO2.5T2 PO (09:27)
[2025-05-17] MEDS ORDERED: AMLO10TA4 PO (09:27)
[2025-05-17] MEDS ORDERED: MAGN400O6 PO (09:27)
[2025-05-17] MEDS ORDERED: VALS160T2 PO (09:27)
[2025-05-17] MEDS: ACETAMINOPHEN 325 MG TABLET PO PRN (11:02)
[2025-05-17 20:00] VITALS: BP 85/65; TEMP 97.5; O2SAT 98
[2025-05-17] MEDS: ONDANSETRON HCL/PF 4 MG/2 ML VIAL IVP PRN (22:37)
[2025-05-18] VITALS (7 sets, daily range): BP systolic 116–192; BP diastolic 66–110; TEMP 97.5–99; O2SAT 96–100
[2025-05-18 07:40] LABS: PLATELET COUNT (AUTO) 215 K/uL (150-450); RED BLOOD CELL COUNT(AUTO) 4.24 MIL/uL (4.0-5.2); RED CELL DISTRIBUTION WIDTH 18.7 % (11.5-15.0); WHITE BLOOD COUNT (AUTO) 4.5 K/uL (4.3-11.0)
[2025-05-18] MEDS: MAGNESIUM HYDROXIDE 30 ML UDC PO PRN (08:53)
[2025-05-18 09:16] LABS: CALCIUM, SERUM 9.0 mg/dL (8.5-10.1); CREATININE 4.5 mg/dL (0.6-1.3); PHOSPHORUS 5.1 mg/dL (2.5-4.9); SODIUM SERUM 130.0 mmol/L (136-145); UREA NITROGEN, BLOOD 27.0 mg/dL (7-18)
[2025-05-18] MEDS ORDERED: POLYETHYLENE GLYCOL 3350 17 GM POWD.PACK PO PRN (11:00)
[2025-05-18] MEDS: POLYETHYLENE GLYCOL 3350 17 GM POWD.PACK PO ONE (12:16)
[2025-05-18] MEDS: ONDANSETRON HCL/PF 4 MG/2 ML VIAL IM ONE (20:24)
[2025-05-19] MEDS: ONDANSETRON 4 MG TAB.RAPDIS SL PRN (06:12)
[2025-05-19 06:21] LABS: PLATELET COUNT (AUTO) 229 K/uL (150-450); RED BLOOD CELL COUNT(AUTO) 4.28 MIL/uL (4.0-5.2); RED CELL DISTRIBUTION WIDTH 18.2 % (11.5-15.0); WHITE BLOOD COUNT (AUTO) 5.1 K/uL (4.3-11.0)
[2025-05-19 06:46] LABS: CALCIUM, SERUM 9.6 mg/dL (8.5-10.1); CREATININE 6.1 mg/dL (0.6-1.3); PHOSPHORUS 6.2 mg/dL (2.5-4.9); SODIUM SERUM 131.0 mmol/L (136-145); UREA NITROGEN, BLOOD 53.0 mg/dL (7-18)
[2025-05-19 09:00] VITALS: BP 176/102; TEMP 98.2; O2SAT 99
[2025-05-19 16:08] VITALS: BP 167/85; TEMP 98.1; O2SAT 98
[2025-05-19 20:00] VITALS: BP 199/103; TEMP 97.3; O2SAT 98
[2025-05-19 21:30] VITALS: BP 136/83; TEMP 97.3; O2SAT 98
[2025-05-20 06:47] LABS: PLATELET COUNT (AUTO) 222 K/uL (150-450); RED BLOOD CELL COUNT(AUTO) 4.14 MIL/uL (4.0-5.2); RED CELL DISTRIBUTION WIDTH 18.7 % (11.5-15.0); WHITE BLOOD COUNT (AUTO) 3.8 K/uL (4.3-11.0)
[2025-05-20 07:14] LABS: CALCIUM, SERUM 8.8 mg/dL (8.5-10.1); CREATININE 5.1 mg/dL (0.6-1.3); SODIUM SERUM 137.0 mmol/L (136-145); UREA NITROGEN, BLOOD 36.0 mg/dL (7-18)
[2025-05-20 08:25] VITALS: BP 190/95; TEMP 98.2; O2SAT 97
[2025-05-20] MEDS: VALSARTAN 80 MG TABLET PO STA (13:42)
[2025-05-20] MEDS: AMLODIPINE BESYLATE 5 MG TABLET PO STA (13:42)
[2025-05-20] MEDS: CARVEDILOL 6.25 MG TABLET PO STA (13:42)
[2025-05-20 16:14] VITALS: BP 162/89; TEMP 97.9; O2SAT 95
== END 2025-05-20 17:32 | DRG 203 ==
LOC: ER 19:50 → MED 21:52 → TELE 22:24 → MED 05-18 09:18
PROVIDERS: ATTEND Nurse Practitioner Family
PROC: 5A1D70Z Performance of Urinary Filtration, Intermittent, Less than 6 Hours Per Day (ICD-10-PCS; principal; 2025-05-17)
DX: M94.0 Chondrocostal junction syndrome [Tietze] (principal); I13.2 Hypertensive heart and chronic kidney disease with heart failure and with stage 5 chronic kidney disease, or end stage renal disease; N18.6 End stage renal disease; E87.1 Hypo-osmolality and hyponatremia; I50.9 Heart failure, unspecified; E11.22 Type 2 diabetes mellitus with diabetic chronic kidney disease; D64.9 Anemia, unspecified; E78.5 Hyperlipidemia, unspecified; E87.5 Hyperkalemia; Z99.2 Dependence on renal dialysis; F41.9 Anxiety disorder, unspecified; H54.3 Unqualified visual loss, both eyes; Z79.4 Long term (current) use of insulin; Z79.899 Other long term (current) drug therapy; G89.29 Other chronic pain; N64.4 Mastodynia; N63.20 Unspecified lump in the left breast, unspecified quadrant; M89.8X9 Other specified disorders of bone, unspecified site
CPT/HCPCS: 36415; 71045-TC; 76642-LT-TC; 80048-TC; 80053-TC; 80061-TC; 82962-TC; 83735-TC; 84100-TC; 84484-TC; 84702-TC; 85025-TC; 90935-TC; 93307-TC; G0378; J1815; J2060; J2270; J2405; Q0162; Q0163

== ENCOUNTER 2025-05-28 08:58 | Inpatient (IN) | payer MEDICAID, OTHER ==
[~2025-05-28] VITALS: Ht 154.9 cm; Wt 56.7 kg
[~2025-05-28 08:58] MED LIST changes: -ACET-73 PO; -ACET325T53 PO; -AMLO-213 PO; +AMLO10TA4 PO; -BISA10SU11 RC; -CARV12.52 PO; +CARV25TA PO; -LOPE2TAB25 PO; -LORA-258 PO; +MINO2.5T2 PO; -NA P133E RC; -ONDA-97 PO; +POLY15DR31 EACHEYE; +SODI15OR6 PO; +VALS160T2 PO; -VALS80TA31 PO; -VIT1TABL46 PO
[2025-05-28] MEDS: ACETAMINOPHEN 325 MG TABLET PO ONE (10:00)
[2025-05-28] MEDS ORDERED: ACETAMINOPHEN 325 MG TABLET ONE (10:02)
[2025-05-28 10:15] LABS: PLATELET COUNT (AUTO) 232 K/uL (150-450); RED BLOOD CELL COUNT(AUTO) 3.64 MIL/uL (4.0-5.2); RED CELL DISTRIBUTION WIDTH 17.2 % (11.5-15.0); WHITE BLOOD COUNT (AUTO) 4.5 K/uL (4.3-11.0)
[2025-05-28] MEDS ORDERED: CALC-261 PO (10:28)
[2025-05-28] MEDS ORDERED: CHOL100043 PO (10:28)
[2025-05-28] MEDS ORDERED: NA P133E RC (10:28)
[2025-05-28] MEDS ORDERED: BRIM5DRO11 EACHEYE (10:28)
[2025-05-28] MEDS ORDERED: BISA10SU61 RC (10:28)
[2025-05-28] MEDS ORDERED: ONDA-97 PO (10:28)
[2025-05-28] MEDS ORDERED: BISA5TAB10 PO (10:28)
[2025-05-28] MEDS ORDERED: PANT40TA49 PO (10:28)
[2025-05-28] MEDS ORDERED: LORA-258 PO (10:28)
[2025-05-28] MEDS ORDERED: LANT750T3 PO (10:28)
[2025-05-28] MEDS ORDERED: FOLI0.8T23 PO (10:28)
[2025-05-28] MEDS ORDERED: AMIN30LI25 PO (10:28)
[2025-05-28] MEDS ORDERED: ACET325T53 PO (10:28)
[2025-05-28] MEDS ORDERED: LOPE2TAB23 PO (10:28)
[2025-05-28] MEDS ORDERED: ACET-73 PO (10:28)
[2025-05-28 10:39] LABS: ASPARTATE AMINOTRANSFERASE 16 U/L (15-37); CALCIUM, SERUM 8.3 mg/dL (8.5-10.1); SODIUM SERUM 130 mmol/L (136-145); TOTAL PROTEIN, SERUM 7.7 g/dL (6.4-8.2); UREA NITROGEN, BLOOD 78 mg/dL (7-18)
[2025-05-28 10:40] LABS: CREATININE 10.0 mg/dL (0.6-1.3)
[2025-05-28 11:33] LABS: APPEARANCE,URINE CLOUDY (CLEAR); BLOOD, URINE Moderate Ery/uL (NEGATIVE); LEUKOCYTE ESTERASE ,URINE Small (NEGATIVE); NITRITE, URINE NEGATIVE (NEGATIVE); UGLUCOSE 250 MG/DL mg/dL (NEGATIVE)
[2025-05-28 11:45] LABS: ADD URINE CULTURE YES
[2025-05-28 11:46] LABS: SQUAMOUS EPITHELIAL CELL,UR Many /HPF (None Seen)
[2025-05-28] MEDS ORDERED: CYCLOBENZAPRINE 10 MG TABLET ONE (12:05)
[2025-05-28] MEDS: CYCLOBENZAPRINE 10 MG TABLET PO ONE (12:09)
[2025-05-28] MEDS ORDERED: NITROGLYCERIN 0.4 MG/TAB BOTTLE SL PRN (12:30)
[2025-05-28] MEDS ORDERED: LORAZEPAM 0.5 MG TABLET PO PRN (12:30)
[2025-05-28] MEDS ORDERED: MAG HYDROX/AL HYDROX/SIMETH 30 ML UDC PO PRN (12:30)
[2025-05-28] MEDS ORDERED: BISACODYL SUPP (10 MG) 10 MG/SUPP.RECT SUPP.RECT RC PRN (12:30)
[2025-05-28] MEDS ORDERED: MAGNESIUM HYDROXIDE 30 ML UDC PO PRN (12:30)
[2025-05-28] MEDS ORDERED: NA PHOS,M-B/NA PHOS,DI-BA 1 EA ENEMA RC PRN (12:30)
[2025-05-28] MEDS ORDERED: SODIUM POLYSTYRENE SULFONATE 15 G/60 ML BOTTLE PO SCH (12:30)
[2025-05-28] MEDS ORDERED: Z GUARD REMEDY 4 OZ OINT TP PRN (12:30)
[2025-05-28] MEDS ORDERED: ACETAMINOPHEN 325 MG TABLET PO PRN (12:30)
[2025-05-28] MEDS ORDERED: DEXTROSE 50%-WATER 50 ML DISP.SYRIN IV PRN (12:30)
[2025-05-28 13:00] VITALS: BP 174/77; TEMP 98.4; O2SAT 96
[2025-05-28] MEDS ORDERED: LOPERAMIDE HCL (2 MG CAP) 2 MG CAPSULE PO PRN (13:00)
[2025-05-28] MEDS: CEFTRIAXONE 1 G in IV D5W 50 ML IV SCH (13:53)
[2025-05-28] MEDS: INSULIN REGULAR, HUMAN 100 UNIT/ML 3 ML VIAL SQ PRN (14:19)
[2025-05-28] MEDS: CARVEDILOL 12.5 MG TABLET PO SCH (17:00)
[2025-05-28] MEDS: POLYVINYL ALCOHOL 15 ML BOTTLE EACHEYE SCH (17:14)
[2025-05-28] MEDS: MINOXIDIL (2.5MG) 2.5 MG TABLET PO SCH (17:15)
[2025-05-28] MEDS: FLU VACC 2025-26(6MOS UP) 0.5 ML SYRINGE IM ONE (17:18)
[2025-05-28] MEDS: BRIMONIDINE TARTRATE OPHT SOLN 5 ML BOTTLE EACHEYE SCH (17:23)
[2025-05-28] MEDS: BLOOD SUGAR DIAGNOSTIC 1 EACH STRIP IN SCH (17:47)
[2025-05-28] MEDS: ALBUMIN 25% 25 GM in PREMIX 1 EA IV PRN (19:54)
[2025-05-28 20:00] VITALS: BP 99/67; TEMP 98; O2SAT 100
[2025-05-28 21:00] VITALS: BP 134/75; TEMP 98; O2SAT 100
[2025-05-28] MEDS: ATORVASTATIN 40 MG TABLET PO SCH (21:34)
[2025-05-28] MEDS: INSULIN GLARGINE, 100 UNIT/ML CARTRIDGE SQ SCH (21:36)
[2025-05-29] VITALS (19 sets, daily range): BP systolic 91–163; BP diastolic 56–89; TEMP 97.7–98.5; O2SAT 96–100
[2025-05-29] MEDS: ONDANSETRON HCL/PF 4 MG/2 ML VIAL IVP PRN (01:53)
[2025-05-29 06:38] LABS: PLATELET COUNT (AUTO) 241 K/uL (150-450); RED BLOOD CELL COUNT(AUTO) 3.83 MIL/uL (4.0-5.2); RED CELL DISTRIBUTION WIDTH 17.4 % (11.5-15.0); WHITE BLOOD COUNT (AUTO) 4.8 K/uL (4.3-11.0)
[2025-05-29 07:36] LABS: CALCIUM, SERUM 9.5 mg/dL (8.5-10.1); CREATININE 6.4 mg/dL (0.6-1.3); PHOSPHORUS 6.3 mg/dL (2.5-4.9); SODIUM SERUM 137.0 mmol/L (136-145); UREA NITROGEN, BLOOD 42.0 mg/dL (7-18)
[2025-05-29] MEDS: PANTOPRAZOLE 40 MG TABLET.DR PO SCH (08:26)
[2025-05-29] MEDS: CHOLECALCIFEROL 1,000 UNIT TABLET (VIT D3) PO SCH (08:27)
[2025-05-29] MEDS: VIT B CMPLX 3/FA/VIT C/BIOTIN 1 TAB TABLET PO SCH (08:27)
[2025-05-29] MEDS: ASPIRIN 81 MG TAB.CHEW PO SCH (08:28)
[2025-05-29 08:41] LABS: LDL 31.0 mg/dL (0-99)
[2025-05-29] MEDS: HYDROCODONE/APAP 5/325MG TABLET PO PRN (08:42)
[2025-05-29] MEDS: PROSOURCE / PROSTAT (PYXIS) 30 ML UDC PO SCH (09:23)
[2025-05-29] MEDS: LOSARTAN POTASSIUM 50 MG TABLET PO SCH (09:24)
[2025-05-29] MEDS: AMLODIPINE BESYLATE 10 MG TABLET PO SCH (09:24)
[2025-05-29] MEDS: LANTHANUM CARBONATE 500 MG TAB.CHEW PO SCH (12:19)
[2025-05-30] VITALS: BP 102/57; TEMP 98.8; O2SAT 97
[2025-05-30 04:00] VITALS: BP 113/69; TEMP 98.2; O2SAT 97
[2025-05-30 08:00] VITALS: BP 121/68; TEMP 98.2; O2SAT 98
[2025-05-30] MEDS: BISACODYL (5 MG) 5 MG TABLET.DR PO SCH (08:39)
[2025-05-30] MEDS: CALCIUM CARB 250MG /VITAMIN D 1 UDTAB PO SCH (08:40)
[2025-05-30 12:00] VITALS: BP 130/68; TEMP 98.1; O2SAT 98
[2025-05-30] MEDS: POLYETHYLENE GLYCOL 3350 17 GM POWD.PACK PO ONE (13:17)
[2025-05-30 16:00] VITALS: BP 113/64; TEMP 97.9; O2SAT 98
== END 2025-05-30 18:50 | DRG 425 ==
LOC: ER 09:03 → TELE1 12:54
PROVIDERS: ADMIT Nurse Practitioner Acute Care; ATTEND Nurse Practitioner Acute Care
PROC: 5A1D70Z Performance of Urinary Filtration, Intermittent, Less than 6 Hours Per Day (ICD-10-PCS; principal; 2025-05-28)
DX: E87.5 Hyperkalemia (principal); I13.2 Hypertensive heart and chronic kidney disease with heart failure and with stage 5 chronic kidney disease, or end stage renal disease; N18.6 End stage renal disease; I50.9 Heart failure, unspecified; E11.22 Type 2 diabetes mellitus with diabetic chronic kidney disease; D64.9 Anemia, unspecified; E83.41 Hypermagnesemia; E87.1 Hypo-osmolality and hyponatremia; Z88.8 Allergy status to other drugs, medicaments and biological substances; Z79.899 Other long term (current) drug therapy; Z79.82 Long term (current) use of aspirin; Z79.4 Long term (current) use of insulin; F41.9 Anxiety disorder, unspecified; Z99.2 Dependence on renal dialysis; E78.5 Hyperlipidemia, unspecified; N63.20 Unspecified lump in the left breast, unspecified quadrant; Z90.49 Acquired absence of other specified parts of digestive tract; M89.8X9 Other specified disorders of bone, unspecified site; R07.89 Other chest pain
CPT/HCPCS: 36415; 71045-TC; 80048-TC; 80061-TC; 80076-TC; 81001; 82962-TC; 83735-TC; 84100-TC; 84484-TC; 85025-TC; 87081-TC; 87086-TC; 90935-TC; A4216; A4223; G0378; J0696; J1815; J2405; J7030; J7050; J7060; P9047; Q0163

== ENCOUNTER 2025-06-23 21:15 | Emergency (ER) | payer MEDICAID ==
[~2025-06-23] VITALS: Ht 157.5 cm; Wt 59.9 kg
[~2025-06-23 21:15] MED LIST changes: +ACET-73 PO; +ACET325T53 PO; +AMIN30LI25 PO; +BISA10SU61 RC; +BISA5TAB10 PO; +BRIM5DRO11 EACHEYE; +CALC-261 PO; +CHOL100043 PO; +FOLI0.8T23 PO; +LANT750T3 PO; +LOPE2TAB23 PO; +LORA-258 PO; +NA P133E RC; +ONDA-97 PO; +PANT40TA49 PO
[2025-06-23 21:24] VITALS: TEMP 98.9
[2025-06-23 21:52] LABS: PLATELET COUNT (AUTO) 191 K/uL (150-450); RED BLOOD CELL COUNT(AUTO) 3.77 MIL/uL (4.0-5.2); RED CELL DISTRIBUTION WIDTH 18.4 % (11.5-15.0); WHITE BLOOD COUNT (AUTO) 6.0 K/uL (4.3-11.0)
[2025-06-23 22:03] LABS: ASPARTATE AMINOTRANSFERASE 24.0 U/L (15-37); CALCIUM, SERUM 9.2 mg/dL (8.5-10.1); SODIUM SERUM 134.0 mmol/L (136-145); TOTAL PROTEIN, SERUM 8.6 g/dL (6.4-8.2)
[2025-06-23 22:13] LABS: INR 1.02 (0.91-1.10)
[2025-06-23 22:24] LABS: CREATININE 7.5 mg/dL (0.6-1.3); UREA NITROGEN, BLOOD 51.0 mg/dL (7-18)
[2025-06-23] MEDS: ACETAMINOPHEN 325 MG TABLET PO ONE (22:55)
[2025-06-23] MEDS: ACETAMINOPHEN ES 500 MG TABLET PO ONE (23:35)
[2025-06-24 01:44] VITALS: BP 155/81; O2SAT 100
== END 2025-06-24 02:10 ==
LOC: ER 21:16
DX: J06.9 Acute upper respiratory infection, unspecified (principal); I13.11 Hypertensive heart and chronic kidney disease without heart failure, with stage 5 chronic kidney disease, or end stage renal disease; E11.22 Type 2 diabetes mellitus with diabetic chronic kidney disease; N18.6 End stage renal disease; G89.29 Other chronic pain; Z79.899 Other long term (current) drug therapy; Z99.2 Dependence on renal dialysis
CPT/HCPCS: 36415; 71045-TC; 71046; 80048-TC; 80076-TC; 85025-TC; 85730-TC

== ENCOUNTER 2025-07-28 21:00 | Emergency (ER) | payer MEDICAID, OTHER ==
[~2025-07-28] VITALS: Ht 157.5 cm; Wt 58.1 kg
[2025-07-28 21:07] VITALS: TEMP 98.1
[2025-07-28] MEDS ORDERED: ONDANSETRON HCL/PF 4 MG/2 ML VIAL ONE (21:31)
[2025-07-28 21:32] LABS: PLATELET COUNT (AUTO) 275 K/uL (150-450); RED BLOOD CELL COUNT(AUTO) 4.21 MIL/uL (4.0-5.2); RED CELL DISTRIBUTION WIDTH 15.4 % (11.5-15.0); WHITE BLOOD COUNT (AUTO) 5.4 K/uL (4.3-11.0)
[2025-07-28] MEDS: ONDANSETRON HCL/PF - ER 4 MG/2 ML VIAL IV ONE (21:33)
[2025-07-28 21:47] LABS: ASPARTATE AMINOTRANSFERASE 22 U/L (15-37); CALCIUM, SERUM 9.1 mg/dL (8.5-10.1); SODIUM SERUM 132 mmol/L (136-145); TOTAL PROTEIN, SERUM 8.7 g/dL (6.4-8.2); UREA NITROGEN, BLOOD 44 mg/dL (7-18)
[2025-07-28 21:53] LABS: CREATININE 8.2 mg/dL (0.6-1.3)
[2025-07-29] MEDS ORDERED: PIPERACI/TAZO 3.375GM/D5W 50ML PB IV ONE
[2025-07-29] MEDS ORDERED: MORPHINE SULFATE INJ 2 MG/ML DISP.SYRIN ONE
[2025-07-29 00:04] VITALS: BP 144/79; O2SAT 100
[2025-07-29] MEDS: PIPERACILLIN /TAZOBACTAM 3.375 G in IV D5W 50 ML IV ONE (00:06)
[2025-07-29] MEDS: MORPHINE SULFATE INJ 2 MG/ML DISP.SYRIN IV ONE (00:06)
== END 2025-07-29 01:07 | disposition short-term general hospital (02) ==
LOC: ER 21:05
DX: R07.89 Other chest pain (principal); I13.2 Hypertensive heart and chronic kidney disease with heart failure and with stage 5 chronic kidney disease, or end stage renal disease; E11.22 Type 2 diabetes mellitus with diabetic chronic kidney disease; F41.9 Anxiety disorder, unspecified; H54.62 Unqualified visual loss, left eye, normal vision right eye; R10.20 Pelvic and perineal pain unspecified side; N18.6 End stage renal disease; Z79.899 Other long term (current) drug therapy; Z99.2 Dependence on renal dialysis
CPT/HCPCS: 99291; 74176; 71045; 96375 ×2; 93005; 84145; 85025; 80048; 83605; 83690; 80076; 36415; 84484 ×2; 87081; 84702; 87040 ×2; 96365; J2405 ×2; J2543; J2270